=== PATIENT | female | born 1930 | race Caucasian/White ===

== ENCOUNTER 2016-11-06 17:20 | Observation (INO) ==
[2016-11-06] MEDS ORDERED: 0.9 % SODIUM CHLORIDE 1,000 ML IV ONE (17:34)
--- NOTE | 2016-11-06 17:46 | Emergency Department Note ---
Syncope HPI - General Chief Complaint: Syncope Stated Complaint: syncope Time Seen by Provider: 11/06/16 17:30 Source: patient Mode of arrival: ambulatory Limitations: no limitations - History of Present Illness HPI Narrative: Patient was seen yesterday for some dizziness and had a negative workup with a negative head CT. today she was at [facility] and had a syncope episode. There was no dizziness. She states she felt warm at the time. denies any chest pain. she is on coumadin and may havhit her head. No headache Neurologic is normal. s He is alert and oriented with no neurologic signs or symptoms. Patient is afebrile - Related Data Home Medications Medication Instructions Recorded Confirmed Alendronate Sodium [Fosamax] 70 mg PO WEEKLY 11/05/16 11/06/16 Carvedilol [Coreg] 3.125 mg PO DAILY 11/05/16 11/06/16 Digoxin [Lanoxin] 125 mcg PO DAILY 11/05/16 11/06/16 Furosemide [Lasix] 20 mg PO DAILY 11/05/16 11/06/16 Lisinopril [Zestril] 5 mg PO DAILY 11/05/16 11/06/16 Meclizine [Antivert] 12.5 mg PO DAILYP 11/05/16 11/06/16 Potassium Chloride [Kdur] 10 meq PO DAILY 11/05/16 11/06/16 Simvastatin [Zocor] 20 mg PO HS 11/05/16 11/06/16 Spironolactone [Aldactone] 12.5 mg PO DAILY 11/05/16 11/06/16 Warfarin [Coumadin] 7.5 mg PO DAILY 11/05/16 11/06/16 Previous Rx's Medication Instructions Recorded Amoxicillin/Potassium Clav 875 mg PO Q12H #20 tablet 11/05/16 [Augmentin] Allergies Allergy/AdvReac Type Severity Reaction Status Date / Time codeine Allergy Unknown NAUSEA/VOMI Verified 11/06/16 17:35 TING Review of Systems All systems ED: reviewed and negative except as stated. Constitutional: Denies: fever, chills Eyes: Denies: eye pain ENT ED: Denies: ear pain Cardiovascular: Denies: chest pain, palpitations Respiratory: Denies: cough Gastrointestinal: Denies: abdominal pain Genitourinary: Denies: urgency, dysuria Musculoskeletal: Denies: back pain Integumentary: Denies: rash, lesions Neurological: Reports: other (Had syncope episode). Denies: headache, weakness Psychiatric: Denies: anxiety, depression Endocrine: Denies: fatigue Hematological/Lymphatic: Denies: easy bleeding Past Medical History - Past Medical History Medical history: Reports: CHF, CVA, hypertension, other (Chronic back pain, Lymphoma) Surgical history ED: Reports: non-contributory - Social History Alcohol use: Reports: None Drug use: Reports: none Physical Exam - General Limitations: no limitations Course Vital Signs Temperature 98.0 F 11/06/16 17:29 Pulse Rate 89 11/06/16 17:29 Respiratory Rate 18 11/06/16 17:29 Blood Pressure 156/70 11/06/16 17:29 Pulse Oximetry (%) 99 11/06/16 17:29 Temperature 98.0 F 11/06/16 17:29 Pulse Rate 106 H 11/06/16 19:31 Respiratory Rate 26 H 11/06/16 19:31 Blood Pressure 174/80 11/06/16 19:31 Pulse Oximetry (%) 78 L 11/06/16 19:31 Syncope - MDM Narrative Medical decision making narrative: xray show right perihiliar pneumonia. Blood cultures drawn Dr Kaba contacted and patient will be admitted, especially with her syncopy episode. she states she's been having the chills - Lab Data Result diagrams: 11/06/16 17:50 11/06/16 17:50 Lab Results 11/06/16 11/06/16 11/06/16 Range/Units 17:49 17:50 17:50 WBC (4.5-11.0) K/mcL RBC (4.00-5.20) M/mcL Hgb (12.0-15.0) g/dL Hct (36.0-48.0) % MCV (80.0-100.0) fL MCH (26.0-34.0) pg MCHC (31.0-36.0) g/dL RDW (11.5-14.5) % Plt Count (140-440) K/mcL MPV (7.4-10.4) fL Gran % (38.0-78.0) % Lymph % (Auto) (15.5-49.0) % [place] % (Auto) (1.0-12.0) % Eos % (Auto) (0.0-7.0) % Baso % (Auto) (0.0-2.0) % Gran # (1.8-8.0) K/mcL Lymph # (1.5-4.8) K/mcL [place] # (0.1-0.9) K/mcL Eos # (0.0-0.7) K/mcL Baso # (0.0-0.3) K/mcL POC PT (11.9-14.5) sec POC INR (0.9-1.2) Sodium 135 (133-145) mmol/L Potassium 4.5 (3.3-5.1) mmol/L Chloride 96 (96-108) mmol/L Carbon Dioxide 21 L (22-30) mmol/L Anion Gap 18.0 H (8-16) BUN 30 H (8-23) mg/dl Creatinine 1.3 H (0.6-1.1) mg/dl GFR Calculation 38 Glucose 96 (70-105) mg/dL Calcium 9.3 (8.6-10.4) mg/dl Total Bilirubin 0.3 (0.0-1.0) mg/dL AST 23 (0-37) U/l ALT 18 (0-40) U/l Alkaline Phosphatase 53 (39-117) U/L Total Creatine Kinase 186 H (24-170) IU/L CK-MB (CK-2) 3.6 H (0-2.9) ng/ml Troponin T < 0.01 (0-0.03) ng/ml NT-Pro-B Natriuret Pep 806.2 H (0-450) pg/ml Total Protein 6.8 (5.9-8.4) gm/dL Albumin 3.8 (3.2-5.2) gm/dL Globulin 3.0 (2.2-3.7) gm/dL Albumin/Globulin Ratio 1.3 (1.0-2.3) Urine Color Urine Appearance Urine pH (5.0-9.0) Ur Specific Russell (1.000-1.035) Urine Protein (NEG) mg/dL Urine Glucose (UA) (NEG) mg/dL Urine Ketones (NEG) mg/dL Urine Occult Blood (<0.03) mg/dL Urine Nitrate (NEG) Urine Bilirubin (NEG) mg/dL Urine Urobilinogen (NEG) mg/dL Ur Leukocyte Esterase (NEG) /uL Ur Culture Indicated? Digoxin 0.5 (0.5-0.8) ng/ml Digoxin Dose Not Reportable Digox Last Dose Time Not Reportable 11/06/16 11/06/16 11/06/16 Range/Units 17:50 18:41 18:41 WBC 6.7 (4.5-11.0) K/mcL RBC 3.79 L (4.00-5.20) M/mcL Hgb 12.2 (12.0-15.0) g/dL Hct 36.1 (36.0-48.0) % MCV 95.3 (80.0-100.0) fL MCH 32.1 (26.0-34.0) pg MCHC 33.7 (31.0-36.0) g/dL RDW 14.4 (11.5-14.5) % Plt Count 315 (140-440) K/mcL MPV 7.2 L (7.4-10.4) fL Gran % 66.0 (38.0-78.0) % Lymph % (Auto) 19.6 (15.5-49.0) % [place] % (Auto) 11.3 (1.0-12.0) % Eos % (Auto) 2.3 (0.0-7.0) % Baso % (Auto) 0.8 (0.0-2.0) % Gran # 4.4 (1.8-8.0) K/mcL Lymph # 1.3 L (1.5-4.8) K/mcL [place] # 0.8 (0.1-0.9) K/mcL Eos # 0.2 (0.0-0.7) K/mcL Baso # 0.1 (0.0-0.3) K/mcL POC PT 24.4 H (11.9-14.5) sec POC INR 2.1 H (0.9-1.2) Sodium (133-145) mmol/L Potassium (3.3-5.1) mmol/L Chloride (96-108) mmol/L Carbon Dioxide (22-30) mmol/L Anion Gap (8-16) BUN (8-23) mg/dl Creatinine (0.6-1.1) mg/dl GFR Calculation Glucose (70-105) mg/dL Calcium (8.6-10.4) mg/dl Total Bilirubin (0.0-1.0) mg/dL AST (0-37) U/l ALT (0-40) U/l Alkaline Phosphatase (39-117) U/L Total Creatine Kinase (24-170) IU/L CK-MB (CK-2) (0-2.9) ng/ml Troponin T (0-0.03) ng/ml NT-Pro-B Natriuret Pep (0-450) pg/ml Total Protein (5.9-8.4) gm/dL Albumin (3.2-5.2) gm/dL Globulin (2.2-3.7) gm/dL Albumin/Globulin Ratio (1.0-2.3) Urine Color Yellow Urine Appearance Clear Urine pH 6.0 (5.0-9.0) Ur Specific Russell 1.011 (1.000-1.035) Urine Protein Neg (NEG) mg/dL Urine Glucose (UA) Negative (NEG) mg/dL Urine Ketones 5/tr A (NEG) mg/dL Urine Occult Blood Neg (<0.03) mg/dL Urine Nitrate Neg (NEG) Urine Bilirubin Neg (NEG) mg/dL Urine Urobilinogen Neg (NEG) mg/dL Ur Leukocyte Esterase Neg (NEG) /uL Ur Culture Indicated? No Digoxin (0.5-0.8) ng/ml Digoxin Dose Digox Last Dose Time Disposition Clinical Impression: Pneumonia Summary: perihilar Disposition: Xfer As Inpt ([facility]) Condition: Fair Referrals: Daria Ayala MD [Primary Care Provider] -
--- NOTE | 2016-11-06 18:00 | XRay Report ---
CLINICAL INFORMATION: Syncope TECHNIQUE: Semiupright AP portable chest x-ray COMPARISON: Previous chest x-rays dated 06/07/2014 and 12/17/2011 FINDINGS: Right perihilar infiltrate. Findings are consistent with pneumonia. Follow-up radiograph to necessary to exclude underlying neoplasm. PA and lateral chest x-ray may also be helpful for better characterization and evaluation. Left lung is negative. Heart size and vascularity are normal. No pulmonary edema. No colonic congestion. No pleural fluid. Patient has undergone prior thoracic kyphoplasty or vertebroplasties. IMPRESSION: 1. Right perihilar infiltrate. Follow-up chest x-ray as well as PA and lateral chest x-ray recommended for further evaluation 2. No evidence for congestive heart failure. Interpreted and Authenticated by: Homero Painter 11/06/16
[2016-11-06 18:25] LABS: Basophils # (Auto) 0.1 K/mcL (0.0-0.3); Basophils % (Auto) 0.8 % (0.0-2.0); Eosinophils # (Auto) 0.2 K/mcL (0.0-0.7); Eosinophils % (Auto) 2.3 % (0.0-7.0); Lymphocytes # (Auto) 1.3 K/mcL (1.5-4.8); Lymphocytes % (Auto) 19.6 % (15.5-49.0); Mean Cell Volume 95.3 fL (80.0-100.0); Mean Corpuscular HGB Conc 33.7 g/dL (31.0-36.0); Mean Corpuscular Hemoglobin 32.1 pg (26.0-34.0); Monocytes # (Auto) 0.8 K/mcL (0.1-0.9); Monocytes % (Auto) 11.3 % (1.0-12.0); Platelet Count 315 K/mcL (140-440); RBC 3.79 M/mcL (4.00-5.20); Red Cell Distribution Width 14.4 % (11.5-14.5)
--- NOTE | 2016-11-06 18:38 | Cat Scan Report ---
CLINICAL INFORMATION: Head injury. Patient is on Coumadin COMPARISON: 11/05/2016 TECHNIQUE: Axial noncontrast-enhanced images through the brain. FINDINGS: No acute intracranial hemorrhage. No subdural hematoma. No epidural hematoma. No subarachnoid hemorrhage. No intra-axial hemorrhage. No focal attenuation abnormalities or areas of localized mass effect. No midline shift. No interval change. Brainstem and cerebellum are negative. Basilar cisterns are normal. No calvarial fracture. Images were obtained coronally through the mandible. There is soft tissue gas overlying the angle of the mandible on the right. No mandibular fracture. No detectable soft tissue hematoma. IMPRESSION: 1. Superficial soft tissue injury overlying the angle of the mandible on the right 2. No mandibular fracture. No calvarial fracture. 3. No acute intracranial abnormality. No interval change. Interpreted and Authenticated by: Homero Painter 11/06/16
[2016-11-06 18:52] LABS: ALT/SGPT 18 U/l (0-40); Albumin 3.8 gm/dL (3.2-5.2); Albumin/Globulin Ratio 1.3 (1.0-2.3); Alkaline Phosphatase 53 U/L (39-117); Blood Urea Nitrogen 30 mg/dl (8-23); Creatine Kinase 186 IU/L (24-170); Creatine Kinase MB 3.6 ng/ml (0-2.9); proBNP 806.2 pg/ml (0-450)
[2016-11-06] MEDS ORDERED: cefTRIAXone 1 GM in DEXTROSE 5% IN WATER 50 ML IV ONE (18:59)
[2016-11-06] MEDS ORDERED: LEVOFLOXACIN 500 MG/100 ML BAG IV ONE (19:07)
[2016-11-06 19:08] LABS: Appearance,Urine CLEAR; Bilirubin,Urine NEG (NEG); Color,Urine YELLOW; Glucose,Urine (UA) NEGATIVE (NEG); Leukocyte Esterase,Urine NEG /uL (NEG); Nitrate,Urine NEG (NEG); Protein,Urine NEG (NEG); Specific Gravity,Urine 1.011 (1.000-1.035); Urine Blood NEG mg/dL (<0.03); Urobilinogen,Urine NEG (NEG)
[2016-11-06] MEDS ORDERED: ACETAMINOPHEN 325 MG TABLET PO PRN ×3 (21:04→22:08)
[2016-11-06] MEDS ORDERED: ONDANSETRON 4 MG/2 ML VIAL IV PRN ×3 (21:04→22:08)
[2016-11-06] MEDS ORDERED: guaiFENesin/CODEINE 10 ML UDC PO PRN (22:08)
[2016-11-06] MEDS ORDERED: MECLIZINE 25 MG TABLET PO SCH (22:08)
[2016-11-06] MEDS ORDERED: MAGNESIUM SULFATE 2 GM/50 ML BAG IV PRN (22:08)
[2016-11-06] MEDS ORDERED: POTASSIUM CHLORIDE 20 MEQ PACKET PO PRN (22:08)
[2016-11-06] MEDS ORDERED: traZODone HCL 50 MG TABLET PO PRN (22:08)
[2016-11-06] MEDS ORDERED: cefTRIAXone 1 GM VIAL ONE (23:10)
[2016-11-06] MEDS: SIMVASTATIN 20 MG TABLET PO SCH (23:16)
[2016-11-06] MEDS: 0.9 % SODIUM CHLORIDE 10 ML SYRINGE IV SCH (23:16)
--- NOTE | 2016-11-07 00:29 | History and Physical Report ---
DATE OF ADMISSION: 11/06/2016 DATE OF ADMISSION: 11/06/2016 REASON FOR ADMISSION: Syncopal episode. HISTORY OF CHIEF COMPLAINT: Randi is an 85-year-old who was in her baseline state of health and went to a [employer] meeting and thereafter went to [facility]. The patient had a syncopal episode wherein she did transiently lose consciousness and ended up on the floor, hitting her right side of the chin and right elbow with skin slips. Subsequently EMS was called. Patient did not have any incontinence or bowel or bladder accident. There was no noticed seizure episode. The loss of consciousness was fairly brief; however, exact duration is unclear. Initial workup in the ER was significant for right hilar infiltrate on chest imaging, but no significant EKG changes. Head CT was unremarkable. Hospitalist Service was consulted for evaluation. At the time of examination, the patient is alert and oriented. She was able to provide most of the history. She denies recent medication changes, sick contacts, diarrhea, dysuria, chest pain, palpitation, tearing neck pain, thunderclap headache, incontinence. It was a regular day. She denies excessive coughing spells or emotional stress or prior similar events. REVIEW OF SYSTEMS: Ten-point review of system was performed and negative except the ones discussed above. PAST MEDICAL HISTORY: 1. History of atrial fibrillation, currently on digoxin and Coreg. 2. Hypertension. 3. Anticoagulation for CVA prophylaxis on Coumadin. 4. Hyperlipidemia. 5. Osteoporosis. 6. Vertigo. CURRENT MEDICATIONS: Coreg 3.125. Digoxin 125. Alendronate 70 weekly. Furosemide 20. Meclizine 12.5. Potassium 10. Simvastatin 20. Spironolactone 12.5. Warfarin 5. ALLERGIES: CODEINE. SOCIAL HISTORY: The patient lives fairly independently __. She drives. Her son who lives 2 doors from her home, [place], keeps an eye on her. She does not smoke or drink. She sees primary care physician eliel. She is a DNR. FAMILY HISTORY: None relevant given advanced age. PHYSICAL EXAMINATION: GENERAL: The patient is alert and oriented. She denies any active distress. BMI 20.5. Height 5 feet 8 inches. Head normocephalic and atraumatic except for right chin abrasion with crusted blood and a 2 x 2 cm contusion, swelling. HEENT: Oral cavity is dry. No ear or nose discharge. NECK: No lymphadenopathy. HEART: S1, S2 regular rhythm. ESM grade I, irregular rhythm. ESM grade 1. Diminished breath sounds at bases. ABDOMEN: Soft and nontender. LOWER EXTREMITIES: No cyanosis or clubbing. No joint swelling. SKIN: No suspicious lesions other than right elbow skin slips. PSYCHIATRIC: Alert and cooperative. NEURO: Nonfocal, moving all four extremities. LABS AND IMAGING: White count 6.7, hemoglobin 12.2, platelets 315. INR 2.1. Lactic acid 1.1. Sodium 135, potassium 4.5, creatinine 1.3, BUN 30. LFTs unremarkable. CK-MB 3.6. BNP 806. UA unremarkable. Digoxin 11.5. X-ray chest: Right hilar infiltrate. CT head: Superficial soft tissue injury overlying angle of mandible with no mandibular fracture or intracranial abnormality. EKG: Atrial fibrillation. ASSESSMENT AND PLAN: An 85-year-old admitted with right hilar pneumonia and syncope. 1. Syncope. Start telemonitoring, echocardiogram, rule out neurocardiogenic syncope. Check orthostatics. Rule out cardiac arrhythmia. History inconsistent with seizures. CT head unremarkable. The patient may benefit from event monitoring with [facility] as an outpatient if no identifiable arrhythmia other than atrial fibrillation. 2. Right hilar pneumonia. Continue antibiotic coverage. 4. Other prior medical issues. Will be continued on prior home medication including anticoagulation for cerebrovascular accident prophylaxis on Coumadin. 5. Hypertension. Continue Coreg/spironolactone 6. Hyperlipidemia. Continue statin. PLAN FOR TODAY: 1. Admit as observation. 2. Antibiotic coverage. 3. Syncope workup. 4. Preexisting medical condition management as above. AA:rm Job ID: [id number] Doc ID: [id number] Louie DURBIN
[2016-11-07] MEDS: 0.9 % SODIUM CHLORIDE 10 ML SYRINGE IV SCH ×3 (05:20→20:50)
[2016-11-07 06:18] LABS: Mean Cell Volume 95.1 fL (80.0-100.0); Mean Corpuscular HGB Conc 33.9 g/dL (31.0-36.0); Mean Corpuscular Hemoglobin 32.3 pg (26.0-34.0); Platelet Count 261 K/mcL (140-440); RBC 3.49 M/mcL (4.00-5.20); Red Cell Distribution Width 14.8 % (11.5-14.5)
[2016-11-07 06:43] LABS: ALT/SGPT 14 U/l (0-40); Albumin 3.3 gm/dL (3.2-5.2); Albumin/Globulin Ratio 1.4 (1.0-2.3); Alkaline Phosphatase 46 U/L (39-117); Bilirubin,Direct < 0.2 mg/dL (0.0-0.3); Blood Urea Nitrogen 22 mg/dl (8-23); Gamma Glutamyl Transpeptidase 8 U/L (5-36)
[2016-11-07] MEDS: CARVEDILOL 3.125 MG TABLET PO SCH (07:44)
[2016-11-07 07:53] LABS: Eosinophils % (Manual) 3 % (0-7); Lymphocytes % 12 % (15-49); Monocytes % (Manual) 14 % (1-12); Platelet Estimate NORMAL (NORMAL); RBC Morphology NORMAL (NORMAL); Segmented Neutrophils % 71 % (38-78)
[2016-11-07] MEDS: FUROSEMIDE 20 MG TABLET PO SCH (08:33)
[2016-11-07] MEDS: SPIRONOLACTONE 25 MG TABLET PO SCH (08:33)
[2016-11-07] MEDS: LISINOPRIL 5 MG TABLET PO SCH (08:33)
[2016-11-07] MEDS: MULTIVIT,THER IRON,CA,FA & MIN 1 TABLET PO SCH (08:33)
[2016-11-07] MEDS: POTASSIUM CHLORIDE 10 MEQ TABLET PO SCH (08:33)
[2016-11-07] MEDS: DOCUSATE SODIUM 100 MG CAPSULE PO SCH ×2 (08:33→20:50)
[2016-11-07] MEDS: cefTRIAXone 2 GM in DEXTROSE 5% IN WATER 50 ML IV SCH (08:45)
--- NOTE | 2016-11-07 11:11 | Internal Med Progress Note ---
Medical - PN: Subj Patient information: Note initiated : 11/07/16 at 11:09 am Service Date, if different from initiated Date: [] Patient: Randi Ellis 85 y/o F admitted on 11/06/16 for Syncope/Pneumonia. Chief Complaint: [] Interval history: 11/06- patient admitted after a syncopal episode at [facility][1][facility]. Initial evaluation with negative head CT. No arrhythmia evident except for A. fib. Started on telemetry monitoring. Echocardiogram to rule out critical aortic stenosis. No significant orthostasis. no signs of TIA/amaurosis or hemiparesis 11/07 await echo. Patient feeling remarkably better. no overnight telemetry events. Recommend [facility] monitoring for excluding arrhythmias if non- detected during this hospitalization. Possible discharge in 24 hours with outpatient follow-up with PCP. No overnight fever chills nausea vomiting or concerns per staff. - Constitutional Vitals: Vital Signs Temp Pulse Resp BP Pulse Ox 97.7 F 76 14 155/77 97 11/07/16 07:30 11/07/16 07:30 11/07/16 07:30 11/07/16 07:30 11/07/16 07:30 Period Temp Pulse Resp BP Sys/[place] Pulse Ox Last 24 Hr 97.6 F-98.7 F 76-82 14-14 128-155/66-77 97-99 Intake and Output 11/06/16 11/07/16 11/07/16 21:59 05:59 13:59 Intake Total 50 / 50 480 / 480 Output Total 875 / 875 Balance -825 / -825 480 / 480 Weight 134 lb 8 oz Intake & Output: Intake & Output 11/06/16 11/07/16 11/07/16 21:59 05:59 13:59 Intake Total 50 / 50 480 / 480 Output Total 875 / 875 Balance -825 / -825 480 / 480 Weight 134 lb 8 oz Intake: Oral 50 / 50 480 / 480 Output: Void Amount 875 / 875 Other: Meal Breakfast Percent of Meal Consumed 100% Feeding Ability Independent General appearance: cooperative, no acute distress Exam: alert oriented No unilateral weakness No fever chills Nondistended abdomen Medical - PN: Obj Da - Labs CBC & Chem 7: 11/07/16 04:35 11/07/16 04:35 Labs: Abnormal Lab Results 11/07/16 11/07/16 11/07/16 05:16 04:35 04:35 RBC 3.49 L Hgb 11.3 L Hct 33.2 L RDW 14.8 H Lymphocytes % 12 L Monocytes % (Manual) 14 H PT 24.6 H INR 2.1 H Carbon Dioxide 19 L Total Protein 5.7 L Meds: Medications Acetaminophen (Tylenol) 650 mg PO Q6HP PRN PRN Reason: PAIN/FEVER > 101 Carvedilol (Coreg) 3.125 mg PO [facility] Last Admin: 11/07/16 07:44 Dose: 3.125 mg Digoxin (Lanoxin) 125 mcg PO DAILY@1400 [facility] Docusate Sodium (Colace) 100 mg PO BID [facility] Last Admin: 11/07/16 08:33 Dose: 100 mg Furosemide (Lasix) 20 mg PO DAILY [facility] Last Admin: 11/07/16 08:33 Dose: 20 mg Guaifenesin/Codeine Phosphate (Robitussin Ac) 10 ml PO Q4HP PRN PRN Reason: Cough Levofloxacin (Levaquin) 750 mg in 150 mls @ 100 mls/hr IV Q48H [facility] Magnesium Sulfate (Magnesium Sulfate) 2 gm in 50 mls @ 50 mls/hr IV UD PRN PRN Reason: MG = or < 1.7 Ceftriaxone Sodium 2 gm/ (Dextrose) 50 mls @ 100 mls/hr IV Q24H [facility] Last Admin: 11/07/16 08:45 Dose: 100 mls/hr Iron Carb/Multivit/Freight Sorter/Folic Acid (Multivitamin W/Minerals) 1 tab PO DAILY [facility] Last Admin: 11/07/16 08:33 Dose: 1 tab Lisinopril (Zestril) 5 mg PO DAILY [facility] Last Admin: 11/07/16 08:33 Dose: 5 mg Meclizine HCl (Antivert) 12.5 mg PO DAILYP PREETI Ondansetron HCl (Zofran) 4 mg IV Q4HP PRN PRN Reason: Nausea And Vomiting Potassium Chloride (Klor-Con) 40 meq PO DAILYP PRN PRN Reason: K+ < 3.5 Potassium Chloride (Kdur) 10 meq PO DAILY [facility] Last Admin: 11/07/16 08:33 Dose: 10 meq Senna/Docusate Sodium (Senna Plus Tablet) 1 tab PO HS [facility] Simvastatin (Zocor) 20 mg PO [facility] Last Admin: 11/06/16 23:16 Dose: Not Given Sodium Chloride (Saline Flush) 10 ml IV Q8 [facility] Last Admin: 11/07/16 05:20 Dose: 10 ml Spironolactone (Aldactone) 12.5 mg PO DAILY [facility] Last Admin: 11/07/16 08:33 Dose: 12.5 mg Trazodone HCl (Desyrel) 50 mg PO HSP PRN PRN Reason: Insomnia Warfarin Sodium (Coumadin Per Pharmacy) 1 order PO DAILY@1400 [facility] Warfarin Sodium (Coumadin) 5 mg PO DAILY@1400 [facility] Medical - PN: A/P - Time Spent With Patient Total time spent is greater than 50% in coordination of care (as documented) at patient's floor/unit and/or counseling patient: 15 - 24 minutes (1) Syncope and collapse Status: Acute Assessment and plan: * Syncope-unclear etiology. Rule out arrhythmia await echo to rule out critical aortic stenosis. negative orthostatics. High likelihood new cardiac syncope. Recommend outpatient tilt table/[facility] [place] monitoring. Carotid ultrasound to rule out basilar insufficiency. * hypertension on lisinopril/Coreg/spironolactone * Atrial flutter on digoxin/Coreg * anticoagulation for CVA prophylaxis on Coumadin. INR therapeutic * Would include meclizine * Hyperlipidemia on statin * History of osteoporosis * Full code Plan * Await echocardiogram results * carotid ultrasound * Continue physical therapy * Outpatient tilt table test/[facility] monitoring on discharge if no identifiable etiology for syncope Current Visit: Yes Medical - PN: Qual - Stroke Symptom Onset Unknown: No - VTE Deep Vein Thrombosis/Pulmonary Embolism Present on Admission: No
--- NOTE | 2016-11-07 12:57 | Ultrasound Report ---
CLINICAL INFORMATION: Syncope COMPARISON: Brain CT scan dated 11/06/2016 TECHNIQUE: Carotid arteries were imaged in sagittal and transverse planes using 5 mHz linear probe: Doppler, color, and 2D. FINDINGS: Bilateral peribifurcational atherosclerotic plaque. Plaque is heterogeneous in the proximal internal carotid arteries bilaterally. Maximum Systolic Flow Velocity: - Right common carotid artery: 59 cm/sec - Right internal carotid artery: 166 cm/sec - Left common carotid artery: 68 cm/sec - Left internal carotid artery: 92 cm/sec Elevated systolic flow velocity in the proximal right internal carotid artery. This is consistent with hemodynamically significant stenosis. Internal carotid artery to common carotid artery ratio approaches 3:1. Peak systolic velocity suggests a stenosis of 50-69% diameter while the internal carotid artery to common carotid artery ratio suggests stenosis of 70-89%. No evidence for 50% or greater diameter stenosis in the proximal left internal carotid artery. There is elevated maximum systolic flow velocity in the proximal vertebral artery bilaterally. Appearance is consistent with hemodynamically significant origin stenoses. Vertebral arteries are antegrade patent IMPRESSION: 1. Heterogeneous plaque in the proximal internal carotid artery bilaterally. 2. Hemodynamically significant stenosis in the proximal right internal carotid artery. See above. 3. Probable stenoses at the origins of both vertebral arteries. Interpreted and Authenticated by: Hom[place] Painter 11/07/16
[2016-11-07] MEDS: WARFARIN 5 MG TABLET PO SCH (13:51)
[2016-11-07] MEDS: DIGOXIN 125 MCG TABLET PO SCH (13:51)
[2016-11-07] MEDS: SIMVASTATIN 20 MG TABLET PO SCH (20:50)
[2016-11-07] MEDS: SENNOSIDES/DOCUSATE SODIUM 1 TAB TABLET PO SCH (20:50)
[2016-11-07] MEDS ORDERED: VANCOMYCIN 1,500 MG in 0.9 % SODIUM CHLORIDE 500 ML IV ONE (22:45)
[2016-11-07] MEDS ORDERED: VANCOMYCIN PER PHARMACY IV ONE (22:45)
[2016-11-07] MEDS ORDERED: VANCOMYCIN 500 MG VIAL ONE (23:16)
[2016-11-07] MEDS ORDERED: VANCOMYCIN 1 GM VIAL ONE (23:16)
[2016-11-08] MEDS: 0.9 % SODIUM CHLORIDE 10 ML SYRINGE IV SCH ×3 (05:40→21:18)
[2016-11-08 05:59] LABS: Mean Cell Volume 94.3 fL (80.0-100.0); Mean Corpuscular HGB Conc 33.4 g/dL (31.0-36.0); Mean Corpuscular Hemoglobin 31.5 pg (26.0-34.0); Platelet Count 246 K/mcL (140-440); RBC 3.47 M/mcL (4.00-5.20); Red Cell Distribution Width 14.6 % (11.5-14.5)
[2016-11-08 06:23] LABS: ALT/SGPT 14 U/l (0-40); Albumin 3.2 gm/dL (3.2-5.2); Albumin/Globulin Ratio 1.3 (1.0-2.3); Alkaline Phosphatase 45 U/L (39-117); Bilirubin,Direct < 0.2 mg/dL (0.0-0.3); Blood Urea Nitrogen 22 mg/dl (8-23); Gamma Glutamyl Transpeptidase 9 U/L (5-36); Magnesium 1.9 mg/dL (1.6-2.5); Uric Acid 4.7 mg/dL (2.5-8.0)
[2016-11-08] MEDS ORDERED: VANCOMYCIN PER PHARMACY IV SCH (06:45)
--- NOTE | 2016-11-08 07:25 | Echocardiogram Report ---
ECHOCARDIOGRAM: 2-D and M-mode echocardiography with cardiac Doppler and color flow imaging were performed with a [employer] Aplio MX. Indication is syncope. The study was technically difficult for anatomic reasons. A diagnostic M-mode tracing of the LV could not be obtained. Overall size of the four cardiac chambers and aortic root appeared normal as did LV wall thickness. Septal motion appeared dyssynergic. LV systolic performance otherwise appeared normal. Estimated ejection fraction is 50%, borderline reduced. The aortic root appeared sclerotic. The aortic valve appeared trileaflet and normal. There was no evidence for aortic stenosis or aortic regurgitation by Doppler interrogation. The mitral and tricuspid valves appeared unremarkable. Doppler interrogation of LV inflow disclosed prolonged early diastolic deceleration time and ''a'' wave dominance indicating delayed LV relaxation. Mitral regurgitation, probably mild (1+), was noted. Pulmonary venous interrogation disclosed normal ''s'' wave dominance. The pulmonic valve was not visualized. Pulmonary artery acceleration time appeared shortened. There was no evidence for pulmonic stenosis or pulmonic regurgitation. Tricuspid regurgitation, probably mild (1+), was noted. No intracardiac shunting was appreciated. There was no evidence for pericardial effusion. The IVC was of normal diameter and showed normal respiratory variation. Sinus rhythm, rate 76, was present. CONCLUSION:Technically difficult study for anatomic reasons. Aortic root sclerosis. Ventricular septal dyssynergy and overall borderline reduced LV systolic performance. Mitral annular calcification with mitral regurgitation, probably mild (1+). Since previous study 10/27/2009, there are probably no major changes. (See accompanying M-mode and Doppler reports for quantitation.) ECHOCARDIOGRAPHY M-MODE CALCULATIONS: HT: 68'' WT: 134 BSA: 1.72 m2 NORMALS AORTA: AORTIC ROOT 2.7 2.0-3.7 cm LEFT ATRIUM 3.0 1.9-4.0 cm MITRAL VALVE: EXCURSION 1.4 1.9-2.7 cm EPSS 0.6 <0.5 cm LT VENTRICLE: LVID (ED) -- 3.5-5.7 cm LVID (ES) -- SEPTAL THICKNESS -- 0.6-1.1 cm SEPTAL EXCURSION -- 0.3-0.8 cm LVPW THICKNESS -- 0.6-1.1 cm LVPW EXCURSION -- 0.9-1.4 cm MINOR AXIS FS -- 25%-40% RT VENTRICLE: RVID (ED) -- 0.9-2.6 cm(up to 3cm if LLD) QUALITATIVE DOPPLER FLOW STUDIES MITRAL VALVE MR, probably mild (1+) AORTIC VALVE -- TRICUSPID VALVE TR, probably mild (1+) PULMONIC VALVE -- QUANTITATIVE DOPPLER FLOW STUDIES SAMPLE SITES VELOCITIES PEAK PRESSURE VALVE AREA and/or VALVE WINDOW (PEAK,M/SEC) DROP (GRADIENT) PRESSURE HALF-TIME MV (Diastole) 0.55 0.9 -- -- MV (Systole) -- -- -- AO (Diastole) -- -- -- AO (Systole) 1.4 -- -- TV (Systole) 2.2 -- -- PV (Systole) 0.8 -- -- PV (Diastole) -- LWG:mateo Job ID: [id number] Doc ID: [id number] Rachid Spaulding MD
--- NOTE | 2016-11-08 07:34 | XRay Report ---
CLINICAL INFORMATION: Syncope. Possible pneumonia. TECHNIQUE: AP portable chest x-ray COMPARISON: 11/06/2016, 06/07/2014 FINDINGS: No focal pulmonary parenchymal infiltrate or mass. Heart size and vascularity are normal. No congestive heart failure. No acute or focal abnormality. Previous examination demonstrated a right perihilar infiltrate. This is probably resolved and is not apparent on present examination. IMPRESSION: 1. Negative AP portable chest x-ray 2. Right perihilar infiltrate is not identified. Interpreted and Authenticated by: Homero Painter 11/08/16
[2016-11-08 07:48] LABS: Eosinophils % (Manual) 6 % (0-7); Lymphocytes % 29 % (15-49); Monocytes % (Manual) 9 % (1-12); Platelet Estimate NORMAL (NORMAL); RBC Morphology NORMAL (NORMAL); Segmented Neutrophils % 56 % (38-78)
[2016-11-08] MEDS: CARVEDILOL 3.125 MG TABLET PO SCH (08:02)
[2016-11-08] MEDS: cefTRIAXone 2 GM in DEXTROSE 5% IN WATER 50 ML IV SCH (09:36)
[2016-11-08] MEDS: SPIRONOLACTONE 25 MG TABLET PO SCH (09:46)
[2016-11-08] MEDS: LISINOPRIL 5 MG TABLET PO SCH (09:48)
[2016-11-08] MEDS: MULTIVIT,THER IRON,CA,FA & MIN 1 TABLET PO SCH (09:50)
[2016-11-08] MEDS: DOCUSATE SODIUM 100 MG CAPSULE PO SCH ×2 (09:51→21:18)
[2016-11-08] MEDS: FUROSEMIDE 20 MG TABLET PO SCH (09:51)
[2016-11-08] MEDS: POTASSIUM CHLORIDE 10 MEQ TABLET PO SCH (09:51)
[2016-11-08] MEDS ORDERED: LEVOFLOXACIN 750 MG/150 ML BAG IV SCH (10:00)
--- NOTE | 2016-11-08 10:19 | Internal Med Progress Note ---
Medical - PN: Subj Patient information: Note initiated : 11/08/16 at 10:17 am Service Date, if different from initiated Date: [] Patient: Randi Ellis 85 y/o F admitted on 11/06/16 for Syncope/Pneumonia. Chief Complaint: [] Interval history: 11/06- [facility] [place] [facility] Initial evaluation with negative head CT. No arrhythmia evident except for A. fib. Started on telemetry monitoring. Echocardiogram to rule out critical aortic stenosis. No significant orthostasis. no signs of TIA/amaurosis or hemiparesis 11/07 await echo. Patient feeling remarkably better. no overnight telemetry events. Recommend [facility] monitoring for excluding arrhythmias if non- detected during this hospitalization. Possible discharge in 24 hours with outpatient follow-up with PCP. No overnight fever chills nausea vomiting or concerns per staff. 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 Discussed treatment plan with family including 2 daughters. Patient would require vascular surgery consult. Recommend [facility]. Start aspirin. Discussed high bleeding risk in combination with Coumadin. No overnight events including arrhythmias/bradycardia. No fever chills. Chest imaging shows interval resolution of hilar pneumonia. DC antibiotics. Blood cultures revealed gram-positive cocci, possibly a contaminant however at this time will continue empiric vancomycin until surveillance cultures are negative. Patient can possibly discharge in 24 hours - Constitutional Vitals: Vital Signs Temp Pulse Resp BP Pulse Ox 98.2 F 80 16 120/70 95 11/08/16 07:32 11/08/16 07:32 11/08/16 07:32 11/08/16 07:32 11/08/16 07:32 Period Temp Pulse Resp BP Sys/[place] Pulse Ox Last 24 Hr 97.8 F-98.7 F 69-82 14-22 114-154/66-80 95-99 Intake and Output 11/07/16 11/08/16 11/08/16 21:59 05:59 13:59 Intake Total 500 / 500 Balance 500 / 500 Weight 135 lb Intake & Output: Intake & Output 11/07/16 11/08/16 11/08/16 21:59 05:59 13:59 Intake Total 500 / 500 Balance 500 / 500 Weight 135 lb Intake: IV 50 / 50 Rocephin 2 gm In Dextrose 50 / 50 5% in Water 50 ml @ 100 mls/hr IV Q24H [facility] Rx#: [id number] Oral 450 / 450 Other: Meal Dinner Breakfast Percent of Meal Consumed 100% 100% Feeding Ability Independent # Voids 1 General appearance: cooperative, no acute distress Exam: nonlabored breathing pleasant Nondistended abdomen No evident pallor Medical - PN: Obj Da - Labs CBC & Chem 7: 11/08/16 04:10 11/08/16 04:10 Labs: Abnormal Lab Results 11/08/16 11/08/16 11/08/16 05:00 04:10 04:10 RBC 3.47 L Hgb 10.9 L Hct 32.7 L RDW 14.6 H Lymphocytes % Monocytes % (Manual) PT 23.4 H INR 2.0 H Carbon Dioxide 18 L Total Protein 5.7 L 11/07/16 11/07/16 11/07/16 05:16 04:35 04:35 RBC 3.49 L Hgb 11.3 L Hct 33.2 L RDW 14.8 H Lymphocytes % 12 L Monocytes % (Manual) 14 H PT 24.6 H INR 2.1 H Carbon Dioxide 19 L Total Protein 5.7 L Meds: Medications Acetaminophen (Tylenol) 650 mg PO Q6HP PRN PRN Reason: PAIN/FEVER > 101 Carvedilol (Coreg) 3.125 mg PO [facility] Last Admin: 11/08/16 08:02 Dose: 3.125 mg Digoxin (Lanoxin) 125 mcg PO DAILY@1400 [facility] Last Admin: 11/07/16 13:51 Dose: 125 mcg Docusate Sodium (Colace) 100 mg PO BID [facility] Last Admin: 11/08/16 09:51 Dose: 100 mg Furosemide (Lasix) 20 mg PO DAILY [facility] Last Admin: 11/08/16 09:51 Dose: 20 mg Guaifenesin/Codeine Phosphate (Robitussin Ac) 10 ml PO Q4HP PRN PRN Reason: Cough Magnesium Sulfate (Magnesium Sulfate) 2 gm in 50 mls @ 50 mls/hr IV UD PRN PRN Reason: MG = or < 1.7 Vancomycin HCl 1,000 mg/ (Sodium Chloride) 250 mls @ 250 mls/hr IV Q24H [facility] Iron Carb/Multivit/[place]/Folic Acid (Multivitamin W/Minerals) 1 tab PO DAILY [facility] Last Admin: 11/08/16 09:50 Dose: 1 tab Lisinopril (Zestril) 5 mg PO DAILY [facility] Last Admin: 11/08/16 09:48 Dose: 5 mg Meclizine HCl (Antivert) 12.5 mg PO DAILYP [facility] Ondansetron HCl (Zofran) 4 mg IV Q4HP PRN PRN Reason: Nausea And Vomiting Potassium Chloride (Klor-Con) 40 meq PO DAILYP PRN PRN Reason: K+ < 3.5 Potassium Chloride (Kdur) 10 meq PO DAILY [facility] Last Admin: 11/08/16 09:51 Dose: 10 meq Senna/Docusate Sodium (Senna Plus Tablet) 1 tab PO [facility] Last Admin: 11/07/16 20:50 Dose: Not Given Simvastatin (Zocor) 20 mg PO HS [facility] Last Admin: 11/07/16 20:50 Dose: 20 mg Sodium Chloride (Saline Flush) 10 ml IV Q8 [facility] Last Admin: 11/08/16 05:40 Dose: 10 ml Spironolactone (Aldactone) 12.5 mg PO DAILY [facility] Last Admin: 11/08/16 09:46 Dose: 12.5 mg Trazodone HCl (Desyrel) 50 mg PO HSP PRN PRN Reason: Insomnia Vancomycin HCl (Vancomycin Per Pharmacy) 1 order IV UD [facility] Warfarin Sodium (Coumadin Per Pharmacy) 1 order PO DAILY@1400 [facility] Last Admin: 11/07/16 13:51 Dose: Not Given Warfarin Sodium (Coumadin) 5 mg PO DAILY@1400 [facility] Last Admin: 11/07/16 13:51 Dose: 5 mg Medical - PN: A/P - Time Spent With Patient Total time spent is greater than 50% in coordination of care (as documented) at patient's floor/unit and/or counseling patient: 25 - 35 minutes (1) Syncope and collapse Status: Acute Assessment and plan: * 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 Recommend vascular intervention. schedule follow[facility] appointment at [facility]. no evidence of cardiac arrhythmias or severe aortic stenosis on echo * Gram-positive bacteremia- continue empiric vancomycin. Surveillance cultures. very unlikely to be a blood borne pathogen given pro-calcitonin less than 0.05 * hypertension on lisinopril/Coreg/spironolactone * Atrial flutter on digoxin/Coreg * anticoagulation for CVA prophylaxis on Coumadin. INR 2 * Hyperlipidemia on statin * History of osteoporosis * Full code Plan * continue empiric vancomycin * Continue physical therapy * Outpatient tilt table test * discharge in 24 hours Current Visit: Yes Medical - PN: Qual - Stroke Symptom Onset Unknown: No - VTE Deep Vein Thrombosis/Pulmonary Embolism Present on Admission: No
[2016-11-08] MEDS: WARFARIN 5 MG TABLET PO SCH (14:14)
[2016-11-08] MEDS: DIGOXIN 125 MCG TABLET PO SCH (14:14)
[2016-11-08] MEDS ORDERED: VANCOMYCIN 1,000 MG in 0.9 % SODIUM CHLORIDE 250 ML IV SCH (15:00)
[2016-11-08] MEDS: SIMVASTATIN 20 MG TABLET PO SCH (21:18)
[2016-11-08] MEDS: SENNOSIDES/DOCUSATE SODIUM 1 TAB TABLET PO SCH (21:18)
[2016-11-09] MEDS: 0.9 % SODIUM CHLORIDE 10 ML SYRINGE IV SCH (05:22)
[2016-11-09 05:49] LABS: Mean Cell Volume 95.3 fL (80.0-100.0); Mean Corpuscular HGB Conc 33.5 g/dL (31.0-36.0); Mean Corpuscular Hemoglobin 31.9 pg (26.0-34.0); Platelet Count 279 K/mcL (140-440); RBC 3.61 M/mcL (4.00-5.20); Red Cell Distribution Width 15.1 % (11.5-14.5)
[2016-11-09 06:01] LABS: ALT/SGPT 15 U/l (0-40); Albumin 3.4 gm/dL (3.2-5.2); Albumin/Globulin Ratio 1.4 (1.0-2.3); Alkaline Phosphatase 46 U/L (39-117); Bilirubin,Direct < 0.2 mg/dL (0.0-0.3); Blood Urea Nitrogen 23 mg/dl (8-23); Gamma Glutamyl Transpeptidase 8 U/L (5-36); Magnesium 1.9 mg/dL (1.6-2.5); Uric Acid 5.2 mg/dL (2.5-8.0)
[2016-11-09 06:37] LABS: Anisocytosis 1+ (NONE SEEN); Band Neutrophils % 1 % (0-10); Eosinophils % (Manual) 10 % (0-7); Lymphocytes % 21 % (15-49); Monocytes % (Manual) 16 % (1-12); Platelet Estimate NORMAL (NORMAL); RBC Morphology ABNORM (NORMAL); Segmented Neutrophils % 52 % (38-78)
[2016-11-09] MEDS: SPIRONOLACTONE 25 MG TABLET PO SCH (08:24)
[2016-11-09] MEDS: LISINOPRIL 5 MG TABLET PO SCH (08:28)
[2016-11-09] MEDS: POTASSIUM CHLORIDE 10 MEQ TABLET PO SCH (08:28)
[2016-11-09] MEDS: MULTIVIT,THER IRON,CA,FA & MIN 1 TABLET PO SCH (08:29)
[2016-11-09] MEDS: DOCUSATE SODIUM 100 MG CAPSULE PO SCH (08:29)
[2016-11-09] MEDS: FUROSEMIDE 20 MG TABLET PO SCH (08:30)
[2016-11-09] MEDS: CARVEDILOL 3.125 MG TABLET PO SCH (08:30)
--- NOTE | 2016-11-09 08:54 | Discharge Summary ---
Medical - DS: Prov Patient information: Note initiated : 11/09/16 at 8:52 am Service Date, if different from initiated Date: [] Patient: Randi Ellis 85 y/o F admitted on 11/06/16 for Syncope/Pneumonia. Chief Complaint: [] Date of admission: 11/06/16 21:42 Discharge date: 11/09/16 Primary care physician: [f_Reg Prim Care Provider] Medical - DS: Meds - Discharge Medications Prescriptions: Aspirin 81 mg CHEWED DAILY #30 tab.chew Active and Home Medications: Home Medications Alendronate Sodium [Fosamax] 70 mg PO WEEKLY 11/05/16 [History Confirmed Last Taken 11/02/16 09:00] Carvedilol [Coreg] 3.125 mg PO DAILY 11/05/16 [History Confirmed 11/06/16 Last Taken 11/05/16 12:00] Digoxin [Lanoxin] 125 mcg PO DAILY 11/05/16 [History Confirmed 11/06/16 Last Taken 11/05/16 12:00] Furosemide [Lasix] 20 mg PO DAILY 11/05/16 [History Confirmed 11/06/16 Last Taken 11/06/16 09:00] Lisinopril [Zestril] 5 mg PO DAILY 11/05/16 [History Confirmed 11/06/16 Last Taken 11/06/16 20:00] Meclizine [Antivert] 12.5 mg PO DAILYP 11/05/16 [History Confirmed 11/06/16 Last Taken Unknown] Potassium Chloride [Kdur] 10 meq PO DAILY 11/05/16 [History Confirmed 11/06/16 Last Taken 11/06/16 09:00] Simvastatin [Zocor] 20 mg PO HS 11/05/16 [History Confirmed 11/06/16 Last Taken 11/05/16 20:00] Spironolactone [Aldactone] 12.5 mg PO DAILY 11/05/16 [History Confirmed Last Taken 11/06/16 09:00] Warfarin [Coumadin] 5 mg PO DAILY 11/05/16 [History Confirmed 11/06/16 Last Taken 11/05/16 20:00] Cholecalciferol (Vitamin D3) [Vitamin D3] 2,000 unit PO DAILY 11/06/16 [History Confirmed 11/06/16 Last Taken 11/05/16 20:00] Magnesium Oxide [Magnesium] 400 mg PO DAILY 11/06/16 [History Confirmed Last Taken 11/05/16 20:00] Mv,Iron,Min/Folic Acid/Biotin [Hair, Skin and Nails Softgel] 66.7 mg PO DAILY [History Confirmed 11/06/16 Last Taken 10/29/16 08:00] [place]-3 Fatty Acids [[place]-3] 1,000 mg PO DAILY 11/06/16 [History Confirmed 03/17 Last Taken 11/05/16 20:00] Vitamin B Complex Vit C No.4 [Super B Complex] 150 mg PO DAILY 11/06/16 [ History Confirmed 11/06/16 Last Taken 11/05/16 20:00] Aspirin 81 mg CHEWED DAILY #30 tab.chew 11/09/16 [Rx Last Taken Unknown] Medical - DS: Hosp Hospital course: DISCHARGE DIAGNOSIS * 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 Recommend vascular intervention. scheduled [facility]-up appointment at [facility]. no evidence of cardiac arrhythmias or severe aortic stenosis on echo. * Gram-positive bacteremia- contaminant * hypertension on lisinopril/Coreg/spironolactone * Atrial flutter on digoxin/Coreg * anticoagulation for CVA prophylaxis on Coumadin. INR 2 * Hyperlipidemia on statin * History of osteoporosis HOSP COURSE Mrs. Ellis is a 85 year old female 11/06- patient admitted after a syncopal episode at [place] [employer] [facility]. Initial evaluation with negative head CT. No arrhythmia evident except for A. fib. Started on telemetry monitoring. Echocardiogram to rule out critical aortic stenosis. No significant orthostasis. no signs of TIA/amaurosis or hemiparesis 11/07 await echo. Patient feeling remarkably better. no overnight telemetry events. Recommend [facility] monitoring for excluding arrhythmias if non- detected during this hospitalization. Possible discharge in 24 hours with outpatient follow-up with PCP. No overnight fever chills nausea vomiting or concerns per staff. 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 Discussed treatment plan with family including 2 daughters. Patient would require vascular surgery consult. Recommend [facility]. Start aspirin. Discussed high bleeding risk in combination with Coumadin. No overnight events including arrhythmias/bradycardia. No fever chills. Chest imaging shows interval resolution of hilar pneumonia. DC antibiotics. Blood cultures revealed gram-positive cocci, possibly a contaminant however at this time will continue empiric vancomycin until surveillance cultures are negative. Patient can possibly discharge in 24 hours 11/09- F/u recs as below. Pt doing well. No furthur events. Discharge diagnosis: . - Time Spent with Patient Total time spent providing and/or coordinating discharge services: Greater than 30 minutes Medical - DS: Exam - Constitutional Vitals: Vital Signs Temp Pulse Resp BP BP Pulse Ox 11/09/16 07:29 97.7 F 18 116/68 95 11/09/16 07:04 95 H 18 11/09/16 03:54 97.6 F 76 18 125/70 98 11/08/16 23:40 98.0 F 80 18 121/71 97 11/08/16 19:33 98.5 F 89 16 93/54 98 11/08/16 17:15 79 11/08/16 15:37 97.9 F 18 100/57 98 11/08/16 13:15 80 11/08/16 12:23 98.1 F 74 16 104/65 96 11/08/16 10:30 75 Intake and Output 11/08/16 11/09/16 11/09/16 21:59 05:59 13:59 Intake Total 850 / 850 120 / 120 Output Total 1250 / 1250 400 / 400 Balance -400 / -400 -280 / -280 Intake: IV 250 / 250 Vancomycin 1,000 mg In 250 / 250 Sodium Chloride 0.9% 250 ml @ 250 mls/hr IV Q24H [facility] Rx#:[id number] Oral 600 / 600 120 / 120 Output: Void Amount 1250 / 1250 400 / 400 Other: Meal Nourishment/Supplement Percent of Meal Consumed 100% Feeding Ability Independent # Voids 1 Weight 138 lb Medical - DS: Data Labs on day of discharge: Labs from last 24 hours 11/09/16 11/09/16 11/09/16 04:08 04:08 04:08 WBC 5.5 RBC 3.61 L Hgb 11.5 L Hct 34.4 L MCV 95.3 MCH 31.9 MCHC 33.5 RDW 15.1 H Plt Count 279 MPV 7.2 L Total Counted 100 Seg Neutrophils % 52 Band Neutrophils % 1 Lymphocytes % 21 Monocytes % (Manual) 16 H Eosinophils % (Manual) 10 H WBC Morphology Abnorm A Vacuolated Monocytes 2+ A Platelet Estimate Normal RBC Morphology Abnorm A Anisocytosis 1+ A RBC Fragments Occ A PT 22.2 H INR 1.9 H Sodium 137 Potassium 4.1 Chloride 103 Carbon Dioxide 21 L Anion Gap 13.0 BUN 23 Creatinine 1.1 GFR Calculation 46 Glucose 91 Uric Acid 5.2 Calcium 8.9 Phosphorus 3.8 Magnesium 1.9 Total Bilirubin 0.3 Direct Bilirubin < 0.2 GGT 8 AST 17 ALT 15 Alkaline Phosphatase 46 Lactate Dehydrogenase 177 Total Protein 5.9 Albumin 3.4 Globulin 2.5 Albumin/Globulin Ratio 1.4 Triglycerides 67 Medical - DS: A/P - Patient/Caregiver Discharge Instructions Activity: as per physical therapy Diet: Regular Diet Additional Instructions: Follow-up PCP in 5 days F/u Vasc surgery at [facility] as scheduled Continue ASA at 81 mg daily I recommend SNF physician to check INR, CBC BMP UA as a posthospital follow-up and Chest x-ray in 1 week. Continue fall precautions All meals on chair sitting upright at 90 degrees to prevent aspiration Return to ER if worsening fever chills shortness of breath, diarrhea, bleeding Continue diet and activity as advised Discussed importance of medication adherence Please review medication list with patient prior to discharge Please schedule follow-up with PCP/Providers prior to discharge and provide printouts Portions of this chart may have been created with Button voice recognition software. Occasional wrong-word or ?sound-like? substitutions may have occurred due to the inherent limitations of voice recognition software. Please read the chart carefully and recognize, using context, where the substitutions have occurred. CC- PCP Prescriptions: Aspirin 81 mg CHEWED DAILY #30 tab.chew - Problem Maintenance (1) Syncope and collapse Status: Acute - Follow up Plan Follow up with: Provider,Other [Physician] - 11/16/16 10:45 am (Dr. Brennan [facility] [address] [id number] ) Daria Ayala MD [Primary Care Provider] - Disposition: Home, Self-Care Prognosis: Fair Rehab Potential: Fair I certify that the patient requires SNF services: No Overall status at discharge: patient is progressing back to baseline Medical - DS: Qual - VTE Deep Vein Thrombosis/Pulmonary Embolism Present on Admission: No
[2016-11-09] MEDS ORDERED: WARFARIN 7.5 MG TABLET PO ONE (14:00)
== END 2016-11-09 12:10 | disposition home or self-care (01) ==
LOC: ED 17:20 → MEDSUR 17:20
PROVIDERS: ADMIT Internal Medicine; ATTEND Internal Medicine

== ENCOUNTER 2021-11-11 13:14 | Inpatient (IN) ==
[2021-11-11] MEDS ORDERED: ONDANSETRON 4 MG/2 ML VIAL IV ONE (13:30)
--- NOTE | 2021-11-11 13:34 | Emergency Department Note ---
Trauma HPI General Chief Complaint: Trauma Stated Complaint: Trauma Time Seen by Provider: 11/11/21 13:22 Source: patient and EMS Mode of arrival: EMS Limitations: no limitations History of Present Illness HPI Narrative: 89-year-old female with history of spinal compression fractures x4 status post vertebroplasty, lung cancer on current radiation therapies, atrial fibrillation on apixaban, hypertension, hyperlipidemia, HFrEF, CKD stage III, presents after a mechanical fall tripping over her walker at approximately 11 AM this morning. She did not lose consciousness, but did hit the right side of her head and shoulder. She is now complaining of severe right shoulder pain, right hip, and back pain. Patient does have some cervical neck tenderness as well. She was given 50 mcg of fentanyl by EMS and rates her pain as a 5/10. Patient lives independently at home. Related Data Home Medications Medication Instructions Recorded Confirmed carvedilol 3.125 mg tablet 3.125 mg PO DAILY 11/05/16 09/11/21 furosemide 20 mg tablet 20 mg PO DAILY 11/05/16 09/11/21 lisinopril 5 mg tablet 5 mg PO DAILY 11/05/16 09/11/21 cholecalciferol (vitamin D3) 50 2,000 unit PO DAILY 11/06/16 09/11/21 mcg (2,000 unit) capsule magnesium oxide 400 mg PO DAILY 11/06/16 09/11/21 potassium chloride 10 mEq 10 meq PO BID tab 10/17/17 09/11/21 tablet,extended release apixaban 5 mg tablet (Eliquis) 2.5 mg PO BID tab 10/08/18 09/11/21 latanoprost 0.005 % eye drops 1 drp OPHTHALMIC QPM 10/08/18 09/11/21 (Xalatan) meclizine 25 mg tablet 25 mg PO Q6H PRN tab 10/08/18 09/11/21 simvastatin 20 mg tablet 10 mg PO HS tab 10/08/18 09/11/21 digoxin 125 mcg (0.125 mg) tablet 125 mcg PO .4xw tab 04/09/19 09/11/21 vitamin B complex 1 tab PO QDAY 04/09/19 09/11/21 zippfizz PO 04/09/19 09/11/21 Previous Rx's Medication Instructions Recorded ondansetron 4 mg disintegrating 4 mg PO Q8H PRN #14 tab 08/11/21 tablet vancomycin 125 mg capsule 125 mg PO QID #60 cap NS 09/11/21 Allergies Allergy/AdvReac Type Severity Reaction Status Date / Time codeine AdvReac Mild NAUSEA/VOMI Verified 08/10/21 18:41 TING Review of Systems ROS ROS Narrative: Narrative: All systems ED: reviewed and negative except as stated. [facility] Narrative Patient History Narrative: Narrative: Medical/Surgical/Family History All Active Problems (Updated 11/11/21 @ 18:29 by Erica Curiel PA-C) Fall (Acute) Multiple fractures (Acute) Compression fracture of body of thoracic vertebra (Acute) Pelvic fracture (Acute) Right ischial fracture (Acute) Right acetabular fracture (Acute) Malignant neoplasm of right lung (Acute) Lung cancer (Acute) C. difficile diarrhea (Acute) C. difficile colitis (Acute) Nausea & vomiting (Acute) CHF (congestive heart failure) (Acute) Diarrhea (Acute) Gastroenteritis (Acute) Diarrhea (Acute) Emphysema lung (Chronic) Pulmonary cavitary lesion (Chronic) Chest pain (Acute) History of vertebral compression fracture (Chronic) Hypertension (Chronic) Osteoarthritis (Chronic) Non-Hodgkin lymphoma in remission (Chronic) Glaucoma (Chronic) Heart disease (Chronic) Radiculopathy, lumbar region (Chronic) Spinal stenosis, lumbar region with neurogenic claudication (Chronic) Chronic pain (Chronic) Laceration (Acute) Lung infiltrate on CT (Chronic) Patellar fracture (Chronic) Osteoporosis (Chronic) Menopausal and postmenopausal disorder (Chronic) Hyperlipidemia (Chronic) Hematuria (Chronic) Dysuria (Chronic) Cystitis, acute (Chronic) Limb cramps (Chronic) CHF (congestive heart failure) (Chronic) Other primary cardiomyopathies (Chronic) Anemia in chronic kidney disease (Chronic) group home (current) use of anticoagulants (Chronic) Systolic CHF with reduced left ventricular function, NYHA class 3 (Chronic) UTI (urinary tract infection) (Chronic) AZAR (dyspnea on exertion) (Chronic) History of tobacco use (Chronic) Heart failure (Chronic ~2007) Anticoagulated on Coumadin (Chronic) Osteopenia (Chronic) Muscle cramps (Chronic) Compression fracture of spine (Chronic) Lumbar back pain (Chronic) Idiopathic osteoarthritis (Chronic) History of non-Hodgkin's lymphoma (Chronic ~05/2007) Crohn's disease of rectum (Chronic) GERD (gastroesophageal reflux disease) (Chronic) Chronic kidney disease, stage III (moderate) (Chronic) CKD (chronic kidney disease) (Chronic) Hypercholesterolemia (Chronic) Cardiomyopathy, secondary (Chronic) Atrial fibrillation (Chronic) Syncope (Chronic) 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, subsequent enc ounter (Chronic) Acute systolic (congestive) heart failure (Chronic) Follicular large cell lymphoma (Chronic) Personal history of pulmonary embolism (Chronic) Other nonspecific abnormal finding of lung field (Chronic) Bladder infection, acute (Acute) Dehydration (Acute) Pneumonia (Acute) Syncope and collapse (Acute) Subdural hematoma (Acute) Headache (Acute) Anticoagulant effect (Acute) Pulmonary embolism (Acute) Lung infiltrate on CT (Acute) Medical History (Updated 11/11/21 @ 18:29 by Erica Curiel PA-C) Acute systolic (congestive) heart failure Anemia in chronic kidney disease Anticoagulated on Coumadin Atrial fibrillation Bladder infection, acute C. difficile colitis C. difficile diarrhea Cardiomyopathy, secondary CHF (congestive heart failure) Chronic kidney disease, stage III (moderate) Chronic pain CKD (chronic kidney disease) Compression fracture of spine Crohn's disease of rectum Cystitis, acute Dehydration Diarrhea AZAR (dyspnea on exertion) Dysuria Emphysema lung Follicular large cell lymphoma GERD (gastroesophageal reflux disease) Glaucoma Heart disease Heart failure (~2007) after chemo Hematuria History of non-Hodgkin's lymphoma (~05/2007) Had chemo History of tobacco use History of vertebral compression fracture Hypercholesterolemia Hyperlipidemia Hypertension Idiopathic osteoarthritis 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) use of anticoagulants Lumbar back pain Lung cancer Malignant neoplasm of right lung Menopausal and postmenopausal disorder Muscle cramps Non-Hodgkin lymphoma in remission Osteoarthritis Osteopenia Osteoporosis Other nonspecific abnormal finding of lung field Other primary cardiomyopathies Patellar fracture Closed Personal history of pulmonary embolism Pneumonia Radiculopathy, lumbar region Spinal stenosis, lumbar region with neurogenic claudication Syncope Syncope and collapse Systolic CHF with reduced left ventricular function, NYHA class 3 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, subsequent encounter UTI (urinary tract infection) Surgical History H/O carotid endarterectomy Left and a portacath in the R side H/O craniotomy 03/2017 Dr. Art H/O knee surgery 2001 Left History of intraocular lens implant Bilateral History of surgery Vertebroplasty, T11 w/ sed LESI #1, L4-5 (no sed) Thoracic Vertebroplasty, T8 w/ sed Thoracic Vertebroplasty, T7 w/ sed History of tonsillectomy and adenoidectomy S/P evacuation of subdural hematoma 03/2017 Dr. Art Family History Mother , at age 82 Heart disease Stroke Father , at age 79 Sudden suddenly while watching a ballgame. Very healthy up to that. Social History Smoking Status: Never smoker Alcohol Intake Frequency: holiday/special occasion only Substance Use: does not use Exam Narrative Narrative: General: AOx3, NAD, nontoxic appearing. Pleasant and conversant. HEENT: PERRL, EOMI, normocephalic. Small laceration to the right lateral eyebrow. She has moist mucous membranes. Normal facies and normal dentition. Cervical neck tenderness over C3-C4. No crepitus Chest: Symmetric, no pain to palpation, clavicles without pain to palpation Respiratory: Lungs clear to auscultation bilaterally. No respiratory distress. Unlabored breathing. Heart: Tachycardic rate and regular rhythm, no murmurs/clicks/rubs. Abdomen: Non-tender, Non distended Extremities: Warm and well perfused. No edema. DP 2+ bilaterally. No venous stasis. No clear deformities of the lower extremity. She is tender palpation along the right pelvis. Right shoulder with notable deformity and pain to palpation. There is associated ecchymosis and joint effusion. She is sensate to light touch throughout the right upper extremity is moving her hand 5/5 to resistance testing. Neuro: No focal deficits. Cranial nerves II-XII grossly normal. Moves all fours against gravity. Skin: Warm dry, no rashes or lesions, no cyanosis. Psych: Normal mood and affect Heme/Lymph: No abnormal bruising General Limitations: no limitations Course Course Course Narrative: 89-year-old female on chronic anticoagulation presents for ground-level fall with multiple pain complaints Reevaluation(s) Reevaluation #1: We will smith scanner, suspect proximal humerus fracture given her exam today. IV pain meds and analgesics. Obtain basic labs Reevaluation #2: Patient with multiple fractures on CT imaging---> consulted Dr. Shen, orthopedics, and there is nothing surgical here. She can weight-bear as tolerated. Right shoulder needs to be in a shoulder immobilizer and nonweightbearing. -Comminuted right proximal humerus fracture -Right superior and inferior pubic rami fracture -Right anterior column of the acetabular fracture -Right fracture of the sacrum of the lateral border that is nondisplaced -Possible increase of the old T5 compression fracture that is now moderate and was previously mild to moderate Head CT was negative for acute intracranial bleeding, old subdural hematoma was again noted. She also has an old left frontal infarct. Since heart rate has been in the 130s, I did obtain an EKG and it shows sinus tachycardia with a left bundle branch block, which is not new. No positive scarbossas criteria. Reevaluation #3: I discussed at length with the family and the patient her goals of care. She understands that she has terminal illness and would not be surprised if she were to within the next 6 months. She also understands that her current injuries put her at high risk of . We discussed her disposition with plan for admission for pain control and hospice referral to home. Patient does have family members who are able to give her 24-hour caregiving and are agreeable with this plan. Vital Signs Vital signs: Vital Signs Temperature 97.9 F 11/11/21 13:23 Pulse Rate 128 H 11/11/21 13:23 Respiratory Rate 22 11/11/21 13:23 Temperature 97.9 F 11/11/21 13:23 Pulse Rate 122 H 11/11/21 15:55 Respiratory Rate 26 H 11/11/21 15:55 Blood Pressure 113/70 11/11/21 15:55 Pulse Oximetry (%) 96 11/11/21 15:55 [facility] Narrative Medical decision making narrative: Multiple traumatic fractures Fall Patient is being admitted for pain control and disposition planning with consult to hospice. Patient was signed out to Dr. Sol. Lab Data Result diagrams: 11/11/21 13:40 Labs: Lab Results 11/11/21 11/11/21 Range/Units 13:40 15:17 WBC 15.7 H (4.5-11.0) K/mcL RBC 3.35 L (3.59-5.38) M/mcL Hgb 10.0 L (11.2-15.7) g/dL Hct 33.0 L (34.1-44.9) % POC Hct 29.0 L (36-48) MCV 98.5 (80.0-100.0) fL MCH 29.9 (26.0-34.0) pg MCHC 30.3 L (31.0-36.0) g/dL RDW 15.1 H (11.5-14.5) % Plt Count 327 (140-440) K/mcL MPV 8.7 (7.4-10.4) fL Neut % (Auto) 92.9 H (38.0-78.0) % Lymph % (Auto) 2.7 L (15.5-49.0) % [place] % (Auto) 3.9 (1.0-12.0) % Eos % (Auto) 0.1 (0.0-7.0) % Baso % (Auto) 0.4 (0.0-2.0) % Lymph # (Auto) 0.42 L (1.50-4.80) K/mcL [place] # (Auto) 0.61 (0.10-0.90) K/mcL Eos # (Auto) 0.02 (0.00-0.70) K/mcL Baso # (Auto) 0.06 (0.00-0.30) K/mcL Absolute Neutrophils 14.63 H (1.80-8.00) K/mcL POC Sodium 132 L (133-145) POC Potassium 4.8 (3.3-5.1) POC Chloride 97 (96-108) POC Total CO2 25.0 (22-30) POC BUN 16 (6-20) POC Creatinine 0.8 (0.6-1.2) POC Glucose 158 H (70-105) POC WB Ioniz Calcium 1.15 L (1.16-1.32) Discharge Plan Patient/Caregiver Discharge Instructions 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
[2021-11-11] MEDS: fentaNYL 100 MCG/2 ML VIAL IV PRN ×2 (13:43→14:57)
[2021-11-11 14:10] LABS: Basophils # (Auto) 0.06 K/mcL (0.00-0.30); Basophils % (Auto) 0.4 % (0.0-2.0); Eosinophils # (Auto) 0.02 K/mcL (0.00-0.70); Eosinophils % (Auto) 0.1 % (0.0-7.0); Lymphocytes # (Auto) 0.42 K/mcL (1.50-4.80); Lymphocytes % (Auto) 2.7 % (15.5-49.0); Mean Cell Volume 98.5 fL (80.0-100.0); Mean Corpuscular HGB Conc 30.3 g/dL (31.0-36.0); Mean Platelet Volume 8.7 fL (7.4-10.4); Monocytes # (Auto) 0.61 K/mcL (0.10-0.90); Monocytes % (Auto) 3.9 % (1.0-12.0); Neutrophils % (Auto) 92.9 % (38.0-78.0); Platelet Count 327 K/mcL (140-440); RBC 3.35 M/mcL (3.59-5.38); Red Cell Distribution Width 15.1 % (11.5-14.5); WBC 15.7 K/mcL (4.5-11.0)
--- NOTE | 2021-11-11 15:18 | Cat Scan Report ---
History: Fell with pelvic injury TECHNIQUE: The pelvis was imaged without contrast in axial plane at 2.5 mm intervals from above the iliac crest to below the lesser trochanters. Sagittal and coronal reformats were created. The radiation exposure was limited using dose reduction technology. There are several fractures in the right side of the pelvis. In the right ischium there is a highly comminuted fracture involving the anterior column of the hip. There is a fracture of the right inferior pubic ramus. There are also fractures in the right pubic bone. A sagittally oriented nondisplaced fracture is seen superiorly in the right side of the sacrum. Left-sided the pelvis is intact. The hips are normal with no fracture and there is no significant arthritis in either hip. There is a hematoma in the right obturator internus muscle. This indents the bladder. No intrapelvic hematoma is present. Bowel pattern is normal. Urinary bladder is normally distended. Uterus and ovaries are atrophic. No lytic or blastic lesion are present. IMPRESSION: Fractures involving the right ischium, right pubic bone and right side of the sacrum Erica Curiel was called with the report Interpreted and Authenticated by: Tye Parson 11/11/21
--- NOTE | 2021-11-11 15:19 | Cat Scan Report ---
History: Fell with neck injury TECHNIQUE: The neck was imaged without contrast in axial plane at 2.5 mm intervals from the skull base through the thoracic inlet. Sagittal and coronal reformats were created. The radiation exposure was limited using dose reduction technology. FINDINGS: The cervico-occipital junction is normal. Mild arthritis is present at the articulation of the odontoid and anterior ring of C1. C2-3 level is normal. At C3-4 there is 2 mm grade 1 spondylolisthesis due to mild arthritis in the facets. Associated with this is a small posterior bulge. This is not causing stenosis. C4-5 disc is severely narrowed and degenerated. There is 2 mm retrolisthesis of C4 posterior to C5. This is not causing stenosis. Moderate disc space narrowing is present at C5-6 and C6-7. There is mild stenosis of the neural foramina bilaterally at these two levels due to spurs. C7-T1 level is normal. There is no fracture or destructive bone lesion. No paraspinal hematoma or mass are present. Large amount calcified plaque is present in the carotid bifurcations. Mild emphysema is present in both upper lobes. IMPRESSION: No fracture Degenerative disc disease and arthritis at multiple levels as described above Erica Curiel was called with the report Interpreted and Authenticated by: Tye Parson 11/11/21
--- NOTE | 2021-11-11 15:19 | Cat Scan Report ---
History: Fell, back injury, prior vertebral fractures with kyphoplasty' s, biopsy would prove and right lung cancer TECHNIQUE: The spine was imaged without contrast in axial plane at 2.5 mm intervals. Sagittal and coronal reformats were created. The radiation exposure was limited using dose reduction technology. FINDINGS: There is a moderately severe kyphotic curvature. The bones are very osteoporotic. There is cement within collapsed vertebral bodies at T7, T8, T11, T12 and L1. Moderately severe biconcave wedge compression fracture is present at T4 and less severe moderate compression fracture at T5. Moderate compression fractures are also present at T9 and T10 and there is a mild biconcave wedge compression fracture at T6. The T5 vertebra has had further loss in height since 09/16/19 the others have remained stable. No new fracture has developed. No lytic or blastic metastasis are present. There is a large necrotic tumor in the right lower lobe. This contains a large amount gas. It measures roughly 9 x 9 cm. There is also consolidation in the surrounding lung which may be a combination of atelectasis and pneumonia. The tumor had been biopsied on 09/13/21 and it has since enlarged. The liquefication of the tumor was not present at the time of the biopsy. There is underlying emphysema in both upper lobes and there is a calcified granuloma in the left upper lobe. Heart size is normal. Moderate amount calcified plaque is present in the coronary arteries and along the wall of normal caliber thoracic aorta.. The visualized ribs are normal with no apparent rib fracture. IMPRESSION: Numerous compression fractures throughout the thoracic spine. Except for mild progression of the fracture at T5, the remainder have remained stable since prior MRI in 09/16/19. Large tumor in the right lower lobe which has become necrotic Erica Curiel was called with the report Interpreted and Authenticated by: Tye Parson 11/11/21
--- NOTE | 2021-11-11 15:19 | Cat Scan Report ---
History: Fell, right shoulder injury TECHNIQUE: The shoulder was imaged without contrast in axial plane at 2.5 mm intervals. Oblique coronal and oblique sagittal reformats were created. The radiation exposure was limited using dose reduction technology. FINDINGS: There is an acute comminuted fracture involving the humeral head. There is a transverse component through the surgical neck and longitudinal components through the tuberosities. There is mild impaction at the fracture site. The humeral head remains aligned with the glenoid. The fracture does extend to the articular surface. The scapula is normal with no fracture. The acromioclavicular joint joint is normal and there is no arthritis. There is edema surrounding the joint and there is also a fluid collections in the joint which is most likely blood. IMPRESSION: Acute comminuted fracture of the humeral head and neck with mild impaction and relatively little angulation Erica Curiel was called with the report Interpreted and Authenticated by: Tye Parson 11/11/21
--- NOTE | 2021-11-11 15:19 | Cat Scan Report ---
History: Fell, low back injury, prior kyphoplasty' s TECHNIQUE: The spine was imaged without contrast in axial plane at 2.5 mm intervals from the thoracolumbar junction to the lower sacrum. Sagittal and coronal reformats were created. The radiation exposure was limited using dose reduction technology. FINDINGS: There is an acute nondisplaced sagittally oriented fracture in the right upper sacrum paralleling the SI joint. There is underlying osteoporosis. The SI joint is normal in width and non . There are old compression fractures at L1, L2, L3 and L4. The greatest loss in height is at L3. There is cement within the L1, L3 and L4 vertebra. These fractures have remained stable since the prior MRI done on 09/16/19. No new lumbar fracture has developed. At L4-5 there is a large broad-based posterior bulge and arthritis in the facets causing severe spinal canal stenosis. At L3-4 there is a small bulge and moderate arthritis in the facets causing mild central canal stenosis. Densely calcified plaques are present in the aorta. There is a 3 mm calculus within a calyx in the upper pole of the right kidney. No retroperitoneal hemorrhage is present. There is no free intraperitoneal air. IMPRESSION: Nondisplaced fracture in the right side of the sacrum. Stable old compression fractures from L1 through L4 Severe spinal canal stenosis at L4-5 Interpreted and Authenticated by: Tye Parson 11/11/21
--- NOTE | 2021-11-11 15:20 | Cat Scan Report ---
History: Fell with multiple injuries, prior bilateral craniotomies for subdural hematomas in 2017 TECHNIQUE: The brain was imaged without contrast in axial plane at 2.5 mm intervals. Sagittal and coronal reformats were created. The radiation exposure was limited using dose reduction technology. FINDINGS: There is an old 1.2 cm cortical infarct superiorly and laterally in the posterior aspect of the left frontal lobe. There is encephalomalacia at this site. This was not present on the prior CT done on 05/01/18. No new infarct is present. There is no intracranial hemorrhage or cerebral edema. Mild generalized atrophy is present. The ventricles are normal in size. There are physiologic calcifications in the globus pallidus bilaterally. There are bilateral jannie holes in the frontal bones. There has been no reoccurrence of the previously seen bilateral subdural hygromas. No skull fracture is present. IMPRESSION: No acute head injury Erica Curiel was called with the report Interpreted and Authenticated by: Tye Parson 11/11/21
[2021-11-11 15:21] LABS: POC Calcium, Ionized 1.15 (1.16-1.32); POC Creatinine 0.8 (0.6-1.2); POC Potassium 4.8 (3.3-5.1)
[2021-11-11] MEDS ORDERED: HYDROmorphone 0.5 MG/0.5 ML SYRINGE IV PRN ×2 (15:58→17:39)
--- NOTE | 2021-11-11 16:19 | EKG ---
[facility] Minor Care Test Date: 2021-11-11 Pat Name: Randi Ellis Department: ED Room: Gender: Female Alum Operator: santos : [id number] Requested By: Erica Curiel Order Number: [id number] Reading MD: Jesus Major Measurements Intervals [place] Rate: 134 P: 237 WI: 112 QRS: -42 QRSD: 120 T: 103 QT: 333 QTc: 498 Interpretive Statements Sinus or ectopic atrial tachycardia LBBB Electronically Signed On 11-11-2021 16:19:19 PDT by Jesus Major /[facility] [place]/M0/[id number]
--- NOTE | 2021-11-11 16:19 | Internal Med History&Physical ---
HPI History of Present Illness Patient information: Note initiated : 11/11/21 at 4:09 pm Service Date, if different from initiated Date: [as above] Patient: Randi Ellis 89 y/o F admitted on for Trauma. Chief Complaint: [multiple fractures] Chief complaint: Fall History of present illness: Randi Ellis is a 89 year old F with a past medical history significant for lung cancer, C. difficile colitis, congestive heart failure, and atrial fibrillation who presents to the hospital with a ground-level fall resulting in multiple fractures. The patient normally uses a four-wheel walker and unfortunately tripped over her walker and fell. There was no LOC. She lives by herself at home and fortunately, was able to make it to the phone and call EMS. Trauma imaging revealed acute comminuted fracture of the humeral head and neck with mild impaction of the right shoulder. Pelvic CT revealed fractures involving the right ischium, right pubic bone and right side of the sacrum. CT T-spine revealed numerous compression fractures throughout the thoracic spine and also noted a large tumor in the right lower lobe that has become necrotic she does have a history of lung cancer. CT of the head and CT C-spine was unrevealing. The family was present at the bedside and has decided to admit the patient for pain control and transition her to hospice. The hospital service was asked to admit the patient. Review of Systems All systems: reviewed and no additional remarkable complaints except as stated Constitutional Constitutional: Present as per HPI EENT Eyes: Present as per HPI; Absent blurry vision Cardiovascular Cardiovascular: Present as per HPI; Absent chest pain, dyspnea, dyspnea on exertion, leg edema or palpatations Respiratory Respiratory: Present as per HPI; Absent cough, dyspnea, dyspnea on exertion, wheezing or stridor Gastrointestinal Gastrointestinal: Present as per HPI; Absent abdominal pain, diarrhea, dysphagia, hematemesis, melena, nausea or vomiting Musculoskeletal Musculoskeletal: Present as per HPI; Absent joint swelling, limited range of motion, muscle cramps, muscle weakness or myalgias Integumentary Integumentary: Present as per HPI; Absent erythema, new lesions, rash or wounds Neurological Neurological: Present as per HPI; Absent abnormal gait, behavioral changes, focal weakness, headache(s), loss of vision, numbness, sensory deficit or syncope Endocrine Endocrine: Absent change in body appearance, fatigue or heat intolerance Hematologic/Lymphatic Hematologic/Lymphatic: Present as per HPI PFSH PFSH All Active Problems (Updated 11/11/21 @ 16:18 by Avi Ruvalcaba MD) Compression fracture of body of thoracic vertebra (Acute) Pelvic fracture (Acute) Right ischial fracture (Acute) Right acetabular fracture (Acute) Malignant neoplasm of right lung (Acute) Lung cancer (Acute) C. difficile diarrhea (Acute) C. difficile colitis (Acute) Nausea & vomiting (Acute) CHF (congestive heart failure) (Acute) Diarrhea (Acute) Gastroenteritis (Acute) Diarrhea (Acute) Emphysema lung (Chronic) Pulmonary cavitary lesion (Chronic) Chest pain (Acute) History of vertebral compression fracture (Chronic) Hypertension (Chronic) Osteoarthritis (Chronic) Non-Hodgkin lymphoma in remission (Chronic) Glaucoma (Chronic) Heart disease (Chronic) Radiculopathy, lumbar region (Chronic) Spinal stenosis, lumbar region with neurogenic claudication (Chronic) Chronic pain (Chronic) Laceration (Acute) Lung infiltrate on CT (Chronic) Patellar fracture (Chronic) Osteoporosis (Chronic) Menopausal and postmenopausal disorder (Chronic) Hyperlipidemia (Chronic) Hematuria (Chronic) Dysuria (Chronic) Cystitis, acute (Chronic) Limb cramps (Chronic) CHF (congestive heart failure) (Chronic) Other primary cardiomyopathies (Chronic) Anemia in chronic kidney disease (Chronic) 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) Systolic CHF with reduced left ventricular function, NYHA class 3 (Chronic) UTI (urinary tract infection) (Chronic) AZAR (dyspnea on exertion) (Chronic) History of tobacco use (Chronic) Heart failure (Chronic ~2007) Anticoagulated on Coumadin (Chronic) Osteopenia (Chronic) Muscle cramps (Chronic) Compression fracture of spine (Chronic) Lumbar back pain (Chronic) Idiopathic osteoarthritis (Chronic) History of non-Hodgkin's lymphoma (Chronic ~05/2007) Crohn's disease of rectum (Chronic) GERD (gastroesophageal reflux disease) (Chronic) Chronic kidney disease, stage III (moderate) (Chronic) CKD (chronic kidney disease) (Chronic) Hypercholesterolemia (Chronic) Cardiomyopathy, secondary (Chronic) Atrial fibrillation (Chronic) Syncope (Chronic) 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, subsequent encounter (Chronic) Acute systolic (congestive) heart failure (Chronic) Follicular large cell lymphoma (Chronic) Personal history of pulmonary embolism (Chronic) Other nonspecific abnormal finding of lung field (Chronic) Bladder infection, acute (Acute) Dehydration (Acute) Pneumonia (Acute) Syncope and collapse (Acute) Subdural hematoma (Acute) Headache (Acute) Anticoagulant effect (Acute) Pulmonary embolism (Acute) Lung infiltrate on CT (Acute) Medical History (Updated 11/11/21 @ 16:18 by Avi Ruvalcaba MD) Acute systolic (congestive) heart failure Anemia in chronic kidney disease Anticoagulated on Coumadin Atrial fibrillation Bladder infection, acute C. difficile colitis C. difficile diarrhea Cardiomyopathy, secondary CHF (congestive heart failure) Chronic kidney disease, stage III (moderate) Chronic pain CKD (chronic kidney disease) Compression fracture of spine Crohn's disease of rectum Cystitis, acute Dehydration Diarrhea AZAR (dyspnea on exertion) Dysuria Emphysema lung Follicular large cell lymphoma GERD (gastroesophageal reflux disease) Glaucoma Heart disease Heart failure (~2007) after chemo Hematuria History of non-Hodgkin's lymphoma (~05/2007) Had chemo History of tobacco use History of vertebral compression fracture Hypercholesterolemia Hyperlipidemia Hypertension Idiopathic osteoarthritis Limb cramps 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 Lumbar back pain Lung cancer Malignant neoplasm of right lung Menopausal and postmenopausal disorder Muscle cramps Non-Hodgkin lymphoma in remission Osteoarthritis Osteopenia Osteoporosis Other nonspecific abnormal finding of lung field Other primary cardiomyopathies Patellar fracture Closed Personal history of pulmonary embolism Pneumonia Radiculopathy, lumbar region Spinal stenosis, lumbar region with neurogenic claudication Syncope Syncope and collapse Systolic CHF with reduced left ventricular function, NYHA class 3 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, subsequent encounter UTI (urinary tract infection) Surgical History H/O carotid endarterectomy Left and a portacath in the R side H/O craniotomy 03/2017 Dr. Art H/O knee surgery 2002 Left History of intraocular lens implant Bilateral History of surgery Vertebroplasty, T11 w/ sed LESI #1, L4-5 (no sed) Thoracic Vertebroplasty, T8 w/ sed Thoracic Vertebroplasty, T7 w/ sed History of tonsillectomy and adenoidectomy S/P evacuation of subdural hematoma 03/2017 Dr. Art Family History Mother , at age 82 Heart disease Stroke Father , at age 79 Sudden suddenly while watching a ballgame. Very healthy up to that. Social History marital status: education level: college occupational status: retired occupation: Retired from [employer] smoking status: Former smoker quit date: 07/01/97 pack-years: 25 alcohol intake frequency: holiday/special occasion only substance use type: does not use MEDS/ALLERGIES Home Medications and Allergies Home Medications Medication Instructions Recorded Confirmed Type carvedilol 3.125 mg tablet 3.125 mg PO DAILY 11/05/16 09/11/21 History furosemide 20 mg tablet 20 mg PO DAILY 11/05/16 09/11/21 History lisinopril 5 mg tablet 5 mg PO DAILY 11/05/16 09/11/21 History cholecalciferol (vitamin D3) 50 2,000 unit PO DAILY 11/06/16 09/11/21 History mcg (2,000 unit) capsule magnesium oxide 400 mg PO DAILY 11/06/16 09/11/21 History potassium chloride 10 mEq 10 meq PO BID tab 10/17/17 09/11/21 History tablet,extended release apixaban 5 mg tablet (Eliquis) 2.5 mg PO BID tab 10/08/18 09/11/21 History latanoprost 0.005 % eye drops 1 drp OPHTHALMIC QPM 10/08/18 09/11/21 History (Xalatan) meclizine 25 mg tablet 25 mg PO Q6H PRN tab 10/08/18 09/11/21 History simvastatin 20 mg tablet 10 mg PO HS tab 10/08/18 09/11/21 History digoxin 125 mcg (0.125 mg) tablet 125 mcg PO .4xw tab 04/09/19 09/11/21 History vitamin B complex 1 tab PO QDAY 04/09/19 09/11/21 History zippfizz PO 04/09/19 09/11/21 History ondansetron 4 mg disintegrating 4 mg PO Q8H PRN #14 tab 08/11/21 09/11/21 Rx tablet vancomycin 125 mg capsule 125 mg PO QID #60 cap NS 09/11/21 09/11/21 Rx Allergies Allergy/AdvReac Type Severity Reaction Status Date / Time codeine AdvReac Mild NAUSEA/VOMI Verified 08/10/21 18:41 TING EXAM Constitutional Vitals: Temp Pulse Resp BP Pulse Ox 97.9 F 122 H 26 H 113/70 96 11/11/21 13:23 11/11/21 15:55 11/11/21 15:55 11/11/21 15:55 11/11/21 15:55 General appearance: thin Head Head exam: Present normal inspection and normocephalic; Absent atraumatic Expanded Head Exam Head exam: Present contusion, laceration and raccoon eyes Eye Eye exam: Present EOMI, normal appearance and PERRL; Absent conjunctival injection ENT ENT exam: Present normal exam; Absent mucous membranes dry Neck Neck exam: Present full ROM; Absent lymphadenopathy Respiratory Respiratory exam: Present normal respiratory exam and CTAB; Absent decreased breath sounds, respiratory distress or wheezes Cardiovascular Cardiovascular exam: Present normal rate and rhythm and RRR; Absent JVD GI/Abdominal GI/Abdominal exam: Present normal bowel sounds and soft; Absent diminished bowel sounds, distended, guarding, mass, rebound or tenderness Neurological Exam Neurological exam: Present alert, CN II-XII intact and oriented X3 Psychiatric Psychiatric exam: Present normal affect and normal mood Skin Skin exam: Present intact and warm; Absent erythema, pallor, petechiae or rash DATA Data Completed and Pending Labs: Labs from last 24 hours 11/11/21 11/11/21 15:17 13:40 WBC 15.7 H RBC 3.35 L Hgb 10.0 L Hct 33.0 L POC Hct 29.0 L MCV 98.5 MCH 29.9 MCHC 30.3 L RDW 15.1 H Plt Count 327 MPV 8.7 Neut % (Auto) 92.9 H Lymph % (Auto) 2.7 L [place] % (Auto) 3.9 Eos % (Auto) 0.1 Baso % (Auto) 0.4 Lymph # (Auto) 0.42 L [place] # (Auto) 0.61 Eos # (Auto) 0.02 Baso # (Auto) 0.06 Absolute Neutrophils 14.63 H POC Sodium 132 L POC Potassium 4.8 POC Chloride 97 POC Total CO2 25.0 POC BUN 16 POC Creatinine 0.8 POC Glucose 158 H POC WB Ioniz Calcium 1.15 L A/P Assessment and plan (1) Malignant neoplasm of right lung: Status: Acute (2) Lung cancer: Status: Acute (3) CHF (congestive heart failure): Status: Acute (4) Osteoarthritis: Status: Chronic (5) Glaucoma: Status: Chronic (6) Spinal stenosis, lumbar region with neurogenic claudication: Status: Chronic (7) Osteoporosis: Status: Chronic (8) Right acetabular fracture: Status: Acute (9) Right ischial fracture: Status: Acute (10) Pelvic fracture: Status: Acute (11) Compression fracture of body of thoracic vertebra: Status: Acute Narrative A/P Narrative: At this point, the patient, and family agree to transition her to comfort measures only. Comfort care orders have been placed. We will make her comfortable with narcotic analgesics including oxycodone, morphine and Dilaudid as needed. The plan is to take the patient home with hospice on Saturday. Time Spent With Patient Time: Total time spent is greater than 50% in coordination of care (as documented) at patient's floor/unit and/or counseling patient: Total time spent with greater than 50% in coordination of care (as documented) at patient's floor/unit and/or counseling patient:: 50 - 70 minutes
[2021-11-11] MEDS ORDERED: oxyCODONE HCL 5 MG TABLET PO PRN (17:39)
[2021-11-11] MEDS ORDERED: ONDANSETRON 4 MG/2 ML VIAL IV PRN (17:39)
[2021-11-11] MEDS ORDERED: morphine 4 MG/ML VIAL IV PRN (17:39)
[2021-11-11] MEDS ORDERED: LORazepam 2 MG/ML VIAL IV PRN (17:59)
[2021-11-11] MEDS ORDERED: morphine 2 MG/ML VIAL IV PRN (18:00)
[2021-11-11] MEDS ORDERED: DOCUSATE SODIUM 100 MG CAPSULE PO SCH (21:00)
[2021-11-11] MEDS ORDERED: SENNOSIDES 1 TABLET PO SCH (21:00)
[2021-11-11] MEDS ORDERED: 0.9 % SODIUM CHLORIDE 10 ML SYRINGE IV SCH ×2 (22:00)
--- NOTE | 2021-12-08 10:30 | Death Note ---
Discharge Sum: Prov Provider Patient information: Note initiated : 12/08/21 at 10:26 am Service Date, if different from initiated Date: [] Patient: Randi Ellis 89 y/o F admitted on 11/11/21 for Trauma. Chief Complaint: [GLF, multiple fractures] Primary care physician: Daria Ayala Admitting clinician: Avi Ruvalcaba Consults: 11/11/21 Consult to Physician [CONS] Stat Comment: Consulting Provider: Robby Lemon Reason For Exam: Physician to Consult Consult to Physician [CONS] Stat Comment: Consulting Provider: Avi Ruvalcaba Reason For Exam: Physician to Consult Discharge Sum: Diag PCOD Cause of : Cardiopulmonary arrest Contributing Factors (1) Malignant neoplasm of right lung: (2) Lung cancer: (3) CHF (congestive heart failure): (4) Osteoarthritis: (5) Glaucoma: (6) Spinal stenosis, lumbar region with neurogenic claudication: (7) Osteoporosis: (8) Right acetabular fracture: (9) Right ischial fracture: (10) Pelvic fracture: (11) Compression fracture of body of thoracic vertebra: Discharge Sum: Summary Date and Time Date of admission: 11/11/21 17:07 Date of : 11/11/21 Summary Details: Randi Ellis is a 89 year old F with a past medical history significant for lung cancer, C. difficile colitis, congestive heart failure, and atrial fibrillation who presents to the hospital with a ground-level fall resulting in multiple fractures. The patient normally uses a four-wheel walker and unfortunately tripped over her walker and fell. There was no LOC. She lives by herself at home and fortunately, was able to make it to the phone and call EMS. Trauma imaging revealed acute comminuted fracture of the humeral head and neck with mild impaction of the right shoulder. Pelvic CT revealed fractures involving the right ischium, right pubic bone and right side of the sacrum. CT T-spine re vealed numerous compression fractures throughout the thoracic spine and also noted a large tumor in the right lower lobe that has become necrotic she does have a history of lung cancer. CT of the head and CT C-spine was unrevealing. The family was present at the bedside and has decided to admit the patient for pain control and transition her to hospice. The hospital service was asked to admit the patient. The patient was transition to comfort measures only and was placed on narcotic analgesics for pain control. She rather quickly within 24 hours. Family were notified. Additional Data Confirmation of as documented by pronouncing clinician: no pulse Family: contacted Attending physician: Avi Ruvalcaba MD Was code activated?: No Autopsy requested?: No
== END 2021-11-11 21:18 | disposition expired | DRG 951 ==
LOC: ED 13:14 → MEDSUR 17:07
PROVIDERS: ADMIT Student in an Organized Health Care Education/Training Program; ATTEND Student in an Organized Health Care Education/Training Program